=== PATIENT | male | born 1985 | race Caucasian/White ===

== ENCOUNTER 2017-05-24 10:35 | Emergency (ER) | payer OTHER ==
[~2017-05-24] VITALS: Ht 195.5 cm; Wt 113.4 kg
[~2017-05-24 10:35] MED LIST: AMOXICILLIN500 MG PO; ANUSOL-HC2.5% RC; BACTRIM DS 8001 TA1 PO; CIPROFLOXACIN500 MG PO; DAYPRO600 M1 PO; FLEXERIL10 MG PO; IBU-8800 MG PO; MOTRIN800 MG PO; NAPROSYN500 MG PO; NKHM; ROBAXIN750 MG PO; TESSALON PERLE200 MG PO; TRAMADOL HCL50 MG PO; ULTRAM50 MG PO; VALIUM10 MG PO; VOLTAREN50 M1 PO; ZITHROMAX Z PA250 MG PO
[2017-05-24] MEDS ORDERED: BENADRYL25 M2 PO (10:48)
[2017-05-24] MEDS ORDERED: MEDROL DOSEPAK4 MG PO (10:48)
== END 2017-05-24 10:53 | disposition home or self-care (01) ==
LOC: ED 10:35
DX: L23.7 Allergic contact dermatitis due to plants, except food (principal)

== ENCOUNTER 2017-07-18 08:58 | Emergency (ER) | payer OTHER ==
[~2017-07-18] VITALS: Ht 195.5 cm; Wt 113.4 kg
[~2017-07-18 08:58] MED LIST changes: +BENADRYL25 M2 PO; +MEDROL DOSEPAK4 MG PO
[2017-07-18 10:00] LABS: BASO % 0.4 % (0.0-1.0); EOS % 0.9 % (1.0-4.0); HEMATOCRIT 42.3 % (42.0-52.0); HEMOGLOBIN 15.2 g/dl (14.0-18.0); LYMPH # 0.8 10*3/uL (1.3-4.4); LYMPH % 18.6 % (27.0-41.0); MEAN CELL VOLUME 86.7 fl (80.0-94.0); MEAN CORPUSCULAR HGB 31.1 pg (27.0-31.0); MEAN CORPUSCULAR HGB CONC 35.9 g/dl (33.0-37.0); MEAN PLATELET VOLUME 10.1 fl (9.6-12.3); MONO # 0.6 10*3/uL (0.1-1.0); MONO % 13.6 % (3.0-9.0); NEUT % 66.3 % (47.0-73.0); PLATELET COUNT AUTOMATED 152 10*3/uL (130-400); RED BLOOD COUNT 4.88 10*6/uL (4.50-5.90); RED CELL DISTRI WIDTH 12.9 % (0-14.5); WHITE BLOOD COUNT 4.5 10*3/uL (4.8-10.8)
[2017-07-18 10:18] LABS: ALBUMIN 3.8 gm/dl (3.1-4.5); ALKALINE PHOSPHATASE 114 U/L (45-117); BUN 12 mg/dl (7-24); CHLORIDE 102 mmol/L (98-107); CREATININE 1.42 mg/dL (0.70-1.30); POTASSIUM 3.8 mmol/L (3.5-5.1); SGOT/AST 46 IU/L (3-35); SGPT/ALT 72 U/L (12-78); SODIUM 136 mmol/L (136-145); TOTAL PROTEIN 7.8 gm/dL (6.4-8.2)
[2017-07-18] MEDS ORDERED: PREDNISONE20 M1 PO (11:28)
[2017-07-18] MEDS ORDERED: TYLENOL325 M1 PO (11:28)
[2017-07-18] MEDS ORDERED: Motrin,Rufen800 MG PO (11:28)
[2017-07-18] MEDS ORDERED: ZOFRAN ODT4 MG SL (11:28)
== END 2017-07-18 11:33 | disposition home or self-care (01) ==
LOC: ED 08:58
PROVIDERS: Nurse Practitioner Family
DX: B34.9 Viral infection, unspecified (principal); F17.200 Nicotine dependence, unspecified, uncomplicated; Z90.89 Acquired absence of other organs; Z79.899 Other long term (current) drug therapy

== ENCOUNTER 2017-12-10 13:32 | Emergency (ER) | payer OTHER ==
[~2017-12-10] VITALS: Ht 195.5 cm; Wt 117.9 kg
[~2017-12-10 13:32] MED LIST changes: +Motrin,Rufen800 MG PO; +PREDNISONE20 M1 PO; +TYLENOL325 M1 PO; +ZOFRAN ODT4 MG SL
== END 2017-12-10 16:02 | disposition home or self-care (01) ==
LOC: ED 13:32
DX: S80.02XA Contusion of left knee, initial encounter (principal); Z90.89 Acquired absence of other organs; Z79.899 Other long term (current) drug therapy; W01.198A Fall on same level from slipping, tripping and stumbling with subsequent striking against other object, initial encounter; Y93.89 Activity, other specified; Y92.89 Other specified places as the place of occurrence of the external cause; Y99.9 Unspecified external cause status

== ENCOUNTER 2018-01-08 03:00 | Emergency (ER) | payer OTHER ==
[~2018-01-08] VITALS: Ht 195.5 cm; Wt 117.9 kg
[2018-01-08] MEDS ORDERED: KEFLEX500 M1 PO (04:06)
== END 2018-01-08 03:55 | disposition home or self-care (01) ==
LOC: ED 03:00
DX: S81.812A Laceration without foreign body, left lower leg, initial encounter (principal); W22.8XXA Striking against or struck by other objects, initial encounter; Y93.39 Activity, other involving climbing, rappelling and jumping off; Y92.828 Other wilderness area as the place of occurrence of the external cause; Y99.8 Other external cause status

== ENCOUNTER 2018-01-16 12:46 | Emergency (ER) | payer OTHER ==
[~2018-01-16] VITALS: Ht 195.5 cm; Wt 113.4 kg
[~2018-01-16 12:46] MED LIST changes: +KEFLEX500 M1 PO
== END 2018-01-16 13:34 | disposition home or self-care (01) ==
LOC: ED 12:46
DX: S81.812D Laceration without foreign body, left lower leg, subsequent encounter (principal); F17.200 Nicotine dependence, unspecified, uncomplicated; Z90.89 Acquired absence of other organs; Z79.899 Other long term (current) drug therapy; X58.XXXD Exposure to other specified factors, subsequent encounter

== ENCOUNTER 2018-06-15 21:15 | Emergency (ER) | payer SELFPAY ==
[~2018-06-15] VITALS: Ht 195.5 cm; Wt 117.9 kg
== END 2018-06-16 00:05 | disposition home or self-care (01) ==
LOC: ED 21:15
DX: M79.672 Pain in left foot (principal); R60.0 Localized edema; Z79.899 Other long term (current) drug therapy; Z79.2 Long term (current) use of antibiotics; X50.1XXA Overexertion from prolonged static or awkward postures, initial encounter; Y93.01 Activity, walking, marching and hiking; Y92.096 Garden or yard of other non-institutional residence as the place of occurrence of the external cause; Y99.8 Other external cause status

== ENCOUNTER 2019-08-25 16:56 | Emergency (ER) | payer OTHER ==
[~2019-08-25] VITALS: Ht 195.5 cm; Wt 124.7 kg
[2019-08-25] MEDS ORDERED: FLONASE ALLERG9.9 ML NAS (19:07)
[2019-08-25] MEDS ORDERED: ZYRTEC10 M3 PO (19:07)
== END 2019-08-25 19:12 | disposition home or self-care (01) ==
LOC: ED 16:56
DX: J06.9 Acute upper respiratory infection, unspecified (principal)

== ENCOUNTER 2020-01-01 05:48 | Emergency (ER) | payer OTHER ==
[~2020-01-01] VITALS: Ht 195.5 cm; Wt 127.0 kg
[~2020-01-01 05:48] MED LIST changes: +FLONASE ALLERG9.9 ML NAS; +ZYRTEC10 M3 PO
== END 2020-01-01 06:55 | disposition home or self-care (01) ==
LOC: ED 05:48
DX: S01.112A Laceration without foreign body of left eyelid and periocular area, initial encounter (principal); Y08.89XA Assault by other specified means, initial encounter; Y93.89 Activity, other specified; Y92.89 Other specified places as the place of occurrence of the external cause; Y99.8 Other external cause status

== ENCOUNTER 2020-07-25 22:14 | Emergency (ER) | payer OTHER ==
[~2020-07-25] VITALS: Ht 195.5 cm; Wt 127.0 kg
[2020-07-26 00:20] LABS: BASO % 0.3 % (0.0-1.0); EOS # 0.1 10*3/uL (0.0-0.4); EOS % 1.8 % (1.0-4.0); HEMATOCRIT 48.2 % (42.0-52.0); LYMPH # 1.9 10*3/uL (1.3-4.4); LYMPH % 26.6 % (27.0-41.0); MEAN CORPUSCULAR HGB 30.3 pg (27.0-31.0); MEAN CORPUSCULAR HGB CONC 34.4 g/dl (33.0-37.0); MEAN PLATELET VOLUME 9.4 fl (9.6-12.3); MONO # 0.4 10*3/uL (0.1-1.0); MONO % 5.8 % (3.0-9.0); NEUT # 4.8 10*3/uL (2.3-7.9); NEUT % 65.2 % (47.0-73.0); PLATELET COUNT AUTOMATED 204 10*3/uL (130-400); RED BLOOD COUNT 5.48 10*6/uL (4.50-5.90); RED CELL DISTRI WIDTH 12.4 % (0-14.5); WHITE BLOOD COUNT 7.3 10*3/uL (4.8-10.8)
[2020-07-26 00:36] LABS: ALBUMIN 4.1 gm/dl (3.1-4.5); ALKALINE PHOSPHATASE 160 U/L (45-117); BUN 14 mg/dl (7-24); CHLORIDE 103 mmol/L (98-107); CREATININE 1.15 mg/dL (0.70-1.30); LIPASE 179 U/L (73-393); POTASSIUM 3.9 mmol/L (3.5-5.1); SGOT/AST 60 IU/L (3-35); SGPT/ALT 118 U/L (12-78); SODIUM 137 mmol/L (136-145); TOTAL PROTEIN 8.3 gm/dL (6.4-8.2)
[2020-07-26 00:37] LABS: TROPONIN I < 0.015 ng/ml (<0.045)
[2020-07-26 00:42] LABS: ACT PARTIAL THROMBO TIME 25.3 SECONDS (20.0-32.1); INTERNATIONAL NORM RATIO 0.9 (2.0-3.5)
[2020-07-26] MEDS ORDERED: METHOCARBAMOL500 M1 PO (01:51)
[2020-07-26] MEDS ORDERED: IBUPROFEN600 MG PO (01:51)
== END 2020-07-26 03:35 | disposition home or self-care (01) ==
LOC: ED 22:14
PROVIDERS: Physician Assistant
DX: S13.4XXA Sprain of ligaments of cervical spine, initial encounter (principal); S39.012A Strain of muscle, fascia and tendon of lower back, initial encounter; M25.512 Pain in left shoulder; M25.562 Pain in left knee; R55 Syncope and collapse; R05 Cough; Z79.899 Other long term (current) drug therapy; Z90.89 Acquired absence of other organs; V49.88XA Car occupant (driver) (passenger) injured in other specified transport accidents, initial encounter; Y93.89 Activity, other specified; Y92.413 State road as the place of occurrence of the external cause; Y99.9 Unspecified external cause status

== ENCOUNTER → 2021-03-22 | Outpatient (CLI) | payer OTHER ==
[~2021-03-22] MED LIST changes: +IBUPROFEN600 MG PO; +METHOCARBAMOL500 M1 PO
== END | disposition home or self-care (01) ==
LOC: COVID19 15:31
PROVIDERS: ATTEND Internal Medicine
DX: U07.1 COVID-19 (principal)

== ENCOUNTER → 2021-03-29 | Outpatient (CLI) | payer OTHER | END | disposition home or self-care (01) | LOC: COVID19 15:53 | PROVIDERS: ATTEND Internal Medicine | DX: Z11.52 Encounter for screening for COVID-19 (principal) ==